=== PATIENT | female | born 1970 | race African-American/Black ===

== ENCOUNTER 2021-11-23 19:02 | Emergency (ER) | payer OTHER, SELFPAY ==
[2021-11-23 19:25] VITALS: BP 216/135; PULSE 83; RESP 16; TEMP 36.4; O2SAT 100
--- NOTE | 2021-11-23 19:30 | ED.EYEPROB ---
HPI - Eye Problem General Chief complaint: Eye Problems Stated complaint: Left Eye Pain Time Seen by Provider: 11/23/21 19:30 Source: patient and RN notes reviewed Mode of arrival: ambulatory Limitations: no limitations History of Present Illness HPI Narrative: 51-year-old female presents to the [facility] with eye redness, left. Reports she had blurry vision this morning, none currently. Wears glasses. Does not wear contacts. No trauma to the eye. Woke up this morning and the eye was crusted closed. Has a history of high blood pressure, states that she takes her blood pressure medication at night. chief complaint: eye pain and eye redness Related Data Home Medications Medication Instructions Recorded Confirmed carvedilol 12.5 mg tablet 12.5 mg PO DAILY 11/23/21 11/23/21 metformin 1,000 mg tablet 1,000 mg PO DIRECTED 11/23/21 11/23/21 olmesartan 40 mg tablet 40 mg PO DAILY 11/23/21 11/23/21 rosuvastatin 20 mg tablet 20 mg PO DAILY 11/23/21 11/23/21 spironolactone 25 1 tablet PO DAILY 11/23/21 11/23/21 mg-hydrochlorothiazide 25 mg tablet Allergies Allergy/AdvReac Type Severity Reaction Status Date / Time shellfish derived Allergy Unknown Other Verified 11/23/21 19:10 Review of Systems Review of Systems: All systems reviewed & are unremarkable except as noted in HPI and below Constitutional: Constitutional: Reports no additional constitutional complaints, Denies chills and Denies fever(s) Eyes: Eyes: Reports as per HPI, Denies change in vision and Reports photophobia ENT: Reports system reviewed and no additional complaints, except as documented Cardiovascular: Cardiovascular: Reports no additional cardiovascular complaints Respiratory: Respiratory: Reports no additional respiratory complaints Gastrointestinal: Gastrointestinal: Reports no additional gastrointestinal complaints Musculoskeletal: Musculoskeletal: Reports no additional musculoskeletal complaints Integumentary/Breasts: Skin/Breast: Reports system reviewed and no additional complaints, except as docu Neurologic: Reports system reviewed and no additional complaints, except as documented Psychiatric: Psychiatric: Reports no additional psychiatric complaints Allergic/Immunologic: Allergic/Immunologic: Reports no additional allergic/immunologic complaints PMFSH Comments At the time of my signature, I reviewed and agree with the nursing past medical, surgical, social, and family history. There is no relevant family history pertinent to the patient complaint. Exam Const: General: healthy appearing, no acute distress and alert Nutritional Appearance: well nourished Orientation/consciousness: patient oriented x3 Limitations: no limitations HENMT: Head: normal to inspection Ears: external ears normal General nose exam: Normal external nose present Eyes: General: appearance normal, both eyes and all related structures Conjunctivae: conjunctival abnormality left conjunctival injection (lower lid) and discharge (clear) Pupils: Equal, round and reactive pupils present EOM: EOMs intact bilaterally Direct Ophthalmoscopy: no photophobia Other: Denies trauma Neck: Neck: normal visual inspection, no lymphadenopathy and no meningeal signs Chest: Chest palpation & inspection: normal inspection of the chest Resp: Effort & Inspection: normal respiratory effort and no use of accessory muscles Auscultation: clear to auscultation bilaterally, no crackles, no rales, no rhonchi and no wheezes Cardio: Rate: regular rate Rhythm: regular rhythm Back/Spine/Pelvis: Cervical Spine: normal cervical lordosis Thoracic/Lumbar Spine: thoracic and lumbar spine normal to inspection Skin: General skin exam: normal color Rashes: no rashes Wounds: no wounds Neuro: General: patient oriented x3, moves all extremities, no meningeal signs and no focal motor deficits Cranial nerves: Yes Equal, round and reactive pupils present Speech: normal speech Gait exam (
[2021-11-23 19:43] VITALS: BP 212/110
== END 2021-11-23 19:44 | disposition left against medical advice (07) ==
PROVIDERS: Emergency Provider Nurse Practitioner; PCP Internal Medicine
DX: H10.32 Unspecified acute conjunctivitis, left eye (principal); I10 Essential (primary) hypertension; E78.00 Pure hypercholesterolemia, unspecified; E11.9 Type 2 diabetes mellitus without complications
CPT/HCPCS: 99213; G0463

== ENCOUNTER 2022-01-19 19:10 | Emergency (ER) | payer OTHER, SELFPAY ==
--- NOTE | 2022-01-19 19:13 | ED.URI ---
HPI - URI/Sore Throat General Chief Complaint: Upper Respiratory Infection Stated Complaint: COUGH Time Seen by Provider: 01/19/22 19:21 Source: patient, RN notes reviewed and old records reviewed Mode of arrival: ambulatory Limitations: no limitations History of Present Illness HPI Narrative: 51-year-old female presents to the [facility] with complaints of cough, congestion since , 5 days. Patient states that she has been taking [id number] products. Unsure of fevers. Denies any chest pain or shortness of breath. Patient reports loss of taste and smell since . Had tried taking Coricidin HBP with no relief Related Data Home Medications Medication Instructions Recorded Confirmed carvedilol 12.5 mg tablet 12.5 mg PO DAILY 11/23/21 01/19/22 metformin 1,000 mg tablet 1,000 mg PO DIRECTED 11/23/21 01/19/22 olmesartan 40 mg tablet 40 mg PO DAILY 11/23/21 01/19/22 rosuvastatin 20 mg tablet 20 mg PO DAILY 11/23/21 01/19/22 spironolactone 25 1 tablet PO DAILY 11/23/21 01/19/22 mg-hydrochlorothiazide 25 mg tablet Allergies Allergy/AdvReac Type Severity Reaction Status Date / Time shellfish derived Allergy Unknown Other Verified 01/19/22 19:17 Review of Systems Review of Systems: All systems reviewed & are unremarkable except as noted in HPI and below Constitutional: Constitutional: Reports no additional constitutional complaints, Denies chills and Denies fever(s) Eyes: Eyes: Reports no additional eye complaints ENT: Reports as per HPI and Reports nasal congestion Cardiovascular: Cardiovascular: Reports no additional cardiovascular complaints Respiratory: Respiratory: Reports as per HPI, Denies chest congestion, Reports cough, Denies dyspnea and Denies wheezing Gastrointestinal: Gastrointestinal: Reports no additional gastrointestinal complaints Musculoskeletal: Musculoskeletal: Reports no additional musculoskeletal complaints Integumentary/Breasts: Skin/Breast: Reports system reviewed and no additional complaints, except as docu Neurologic: Reports system reviewed and no additional complaints, except as documented Psychiatric: Psychiatric: Reports no additional psychiatric complaints Allergic/Immunologic: Allergic/Immunologic: Reports no additional allergic/immunologic complaints PMFSH Past Medical History Medical History (Updated 01/19/22 @ 19:48 by Jammie Solis, CARMELO) Diabetes High cholesterol History of high blood pressure Comments At the time of my signature, I reviewed and agree with the nursing past medical, surgical, social, and family history. There is no relevant family history pertinent to the patient complaint. Exam Const: General: healthy appearing, comfortable, no acute distress, well developed, alert and well nourished Nutritional Appearance: well nourished Orientation/consciousness: patient oriented x3 Limitations: no limitations HENMT: Head: normal to inspection Ears: external ears normal and TM's normal bilaterally Face/Nose/Sinus: Normal external nose present and Nasal discharge present clear bilateral Face and sinus: normal facial exam and sinus tenderness frontal and maxillary Mouth: Yes Normal oral and palatal mucosa present, Yes lip normal and Yes moist mucous membranes Throat: posterior oropharynx normal and uvula midline Eyes: General: appearance normal, both eyes and all related structures Conjunctivae: conjunctivae normal Pupils: Equal, round and reactive pupils present Neck: Neck: normal visual inspection, full ROM, no lymphadenopathy and no meningeal signs Chest: Chest palpation & inspection: normal inspection of the chest Resp: Effort & Inspection: normal respiratory effort and no use of accessory muscles Auscultation: clear to auscultation bilaterally, no crackles, no rales, no rhonchi and no wheezes Cardio: Rate: regular rate Rhythm: regular rhythm Back/Spine/Pelvis: Cervical Spine: cervical ROM normal and No Cervical spine tenderness T
[2022-01-19 19:16] VITALS: BP 162/106; PULSE 98; RESP 18; TEMP 36.2; O2SAT 99
== END 2022-01-19 19:45 | disposition home or self-care (01) ==
PROVIDERS: Emergency Provider Nurse Practitioner; PCP Internal Medicine
DX: J01.40 Acute pansinusitis, unspecified (principal); E11.9 Type 2 diabetes mellitus without complications; Z79.84 Long term (current) use of oral hypoglycemic drugs; Z20.822 Contact with and (suspected) exposure to COVID-19
CPT/HCPCS: 87426; 87804; 99213; C9803; G0463

== ENCOUNTER 2023-11-21 17:49 | Emergency (ER) | payer OTHER, SELFPAY ==
--- NOTE | 2023-11-21 17:50 | ED.UPPEXIN ---
HPI - Extremity Injury (Upper) General Chief Complaint: Extremity Problem,Nontraumatic Stated Complaint: left shoulder issue Time Seen by Provider: 11/21/23 17:50 Source: patient Mode of arrival: ambulatory Limitations: no limitations History of Present Illness HPI narrative: Herlinda is a 53-year-old female patient presenting to the clinic today with complaints of left anterior shoulder pain x2 days. She reports is having pain radiating from the shoulder down into the elbow. Pain is worse with trying to lift the left shoulder. No known injury. 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 Denies any heavy lifting Related Data Home Medications Medication Instructions Recorded Confirmed carvedilol 12.5 mg tablet 12.5 mg PO DAILY 11/23/21 01/19/22 metformin 1,000 mg tablet 1,000 mg PO DIRECTED 11/23/21 01/19/22 olmesartan 40 mg tablet 40 mg PO DAILY 11/23/21 01/19/22 rosuvastatin 20 mg tablet 20 mg PO DAILY 11/23/21 01/19/22 spironolactone 25 1 tablet PO DAILY 11/23/21 01/19/22 mg-hydrochlorothiazide 25 mg tablet estradiol 0.01% (0.1 mg/gram) vaginal 11/21/23 vaginal cream Allergies Allergy/AdvReac Type Severity Reaction Status Date / Time shellfish derived Allergy Unknown Other Verified 11/21/23 17:52 Review of Systems Review of Systems: Pertinent positives per HPI. Patient denies any fever, chills, rash, headache, visual changes, dizziness, cough, runny nose, sore throat, shortness of breath, chest pain, palpitations, nausea, vomiting, diarrhea, constipation, abdominal pain, or any urinary issues. PMFSH Past Medical History Medical History Diabetes High cholesterol History of high blood pressure Comments At the time of my signature, I reviewed and agree with the nursing past medical, surgical, social, and family history. There is no relevant family history pertinent to the patient complaint. Exam Narrative: General: Well-developed, well nourished, in no apparent distress Head: Normocephalic, atraumatic. Cardio: Regular rate and rhythm, s1 and s2 normal, no murmur appreciated. Resp: Clear to auscultation bilaterally, no rhonchi, rales, wheezing or rubs. Musculoskeletal: No deformity, tender to palpation over the anterior lateral shoulder, unable to raise arm above head, pain radiating from the anterior shoulder into the elbow, hand grasp strong and equal bilaterally, positive cross-arm test and Verduzco test, unable to perform empty can and full can due to significant pain. Peripheral pulse strong, no edema, no cyanosis, normal gait and station Course Course Emergency Course: Portions of this record may have been created with voice recognition software. Level of Care: Express Care Visit Vital Signs Vital signs: Vital signs reviewed MDM - Extremity Injury (Upper) MDM Narrative Medical decision making narrative: At the time of visit patient is resting comfortably on the exam table. Patient appears to be nontoxic. Plan: Offered arm sling and patient declined at this time. I suspect patient has rotator cuff tendinitis. Prescription for Medrol Dosepak was sent to the pharmacy. Patient has a follow-up appointment with her provider on . Recommend further evaluation if she is still having symptoms at that time. Blood pressure was elevated in the clinic today and patient has not yet taken her blood pressure medicines today. Supportive measures were discussed with the patient and they voiced understanding discharge instructions and agrees to treatment plan. Return precautions reviewed Differential Diagnosis Differential diagnosis: Likely dislocation of shoulder, fracture of humerus, fracture of clavicle and other (Shoulder sprain, osteoarthritis, AC separation,) Discharge Plan Discharge Clinical Impression: Tendonitis of shoulder, left Patient Disposition: Home, Self-Care Condition: Stable Instruction
[2023-11-21 17:52] VITALS: BP 187/100; PULSE 92; RESP 20; TEMP 36.7; O2SAT 98
== END 2023-11-21 18:15 | disposition home or self-care (01) ==
PROVIDERS: Emergency Provider Nurse Practitioner Family; PCP Internal Medicine
DX: M77.8 Other enthesopathies, not elsewhere classified (principal); E11.9 Type 2 diabetes mellitus without complications; Z79.84 Long term (current) use of oral hypoglycemic drugs; E78.00 Pure hypercholesterolemia, unspecified; I10 Essential (primary) hypertension
CPT/HCPCS: 99213; G0463

== ENCOUNTER 2024-08-17 09:26 | Emergency (ER) | payer OTHER, SELFPAY ==
--- NOTE | 2024-08-17 09:28 | ED_ITS ---
HPI - URI/Sore Throat General Chief Complaint: Upper Respiratory Infection Stated Complaint: sore throat/coughing Time Seen by Provider: 08/17/24 09:32 Source: patient, RN notes reviewed and old records reviewed Mode of arrival: ambulatory Limitations: no limitations History of Present Illness HPI Narrative: 54-year-old female presents to the [facility] with complaints of cough, sore throat for 1 week. Has taken OTC cold medications. Some parts of this dictation were generated by voice recognition software and may contain typographical and/or grammatical inaccuracies. Related Data Home Medications ?Medication ?Instructions ?Recorded ?Confirmed ?Last Taken ?Type carvedilol 12.5 mg tablet 12.5 mg PO DAILY 11/23/21 01/19/22 Unknown History metformin 1,000 mg tablet 1,000 mg PO DIRECTED 11/23/21 01/19/22 Unknown History olmesartan 40 mg tablet 40 mg PO DAILY 11/23/21 01/19/22 Unknown History rosuvastatin 20 mg tablet 20 mg PO DAILY 11/23/21 01/19/22 Unknown History spironolactone 25 1 tablet PO DAILY 11/23/21 01/19/22 Unknown History mg-hydrochlorothiazide 25 mg tablet estradiol 0.01% (0.1 mg/gram) vaginal 11/21/23 Unknown History vaginal cream Allergies Allergy/AdvReac Type Severity Reaction Status Date / Time shellfish derived Allergy Unknown Other Verified 08/17/24 09:29 Review of Systems Review of Systems: All systems reviewed & are unremarkable except as noted in HPI and below Constitutional: Constitutional: Reports no additional constitutional complaints ENT: Reports as per HPI and Reports sore throat Cardiovascular: Cardiovascular: Reports no additional cardiovascular complaints, Denies chest pain and Denies dyspnea Respiratory: Respiratory: Reports as per HPI, Denies chest congestion, Reports cough and Denies dyspnea Musculoskeletal: Musculoskeletal: Reports no additional musculoskeletal complaints Integumentary/Breasts: Skin/Breast: Reports system reviewed and no additional complaints, except as docu PMFSH Past Medical History Medical History High cholesterol Diabetes History of high blood pressure Comments At the time of my signature, I reviewed and agree with the nursing past medical, surgical, social, and family history. There is no relevant family history pertinent to the patient complaint. Exam Const: General: cooperative, comfortable, no acute distress, well developed, alert, tired appearing, uncomfortable and well nourished Nutritional Appearance: well nourished Orientation/consciousness: patient oriented x3 Limitations: no limitations HENMT: Head: normal to inspection Ears: hearing grossly normal bilaterally, external ears normal, TM's normal bilaterally, EAC's normal, mastoids normal and no periauricular adenopathy Face/Nose/Sinus: Abnormal mucous membranes and turbinates present boggy and erythematous, face symmetric and sinus tenderness Face and sinus: normal facial exam and face symmetric Mouth: Yes Normal oral and palatal mucosa present, Yes lip normal, Yes tongue normal and Yes moist mucous membranes Throat: posterior oropharynx normal, uvula midline, postnasal drainage and no uvular edema Eyes: General: appearance normal, both eyes and all related structures Alignment and Position: alignment normal Conjunctivae: conjunctival abnormality right conjunctival injection and discharge Neck: Neck: normal visual inspection, full ROM, no lymphadenopathy and no meningeal signs Chest: Chest palpation & inspection: normal inspection of the chest Resp: Effort & Inspection: normal respiratory effort and able to speak in complete sentences Auscultation: clear to auscultation bilaterally, no crackles, no rales, no rhonchi and no wheezes Cardio: Rate: regular rate Skin: General skin exam: normal color and no rashes or lesions noted Neuro: General: patient oriented x3, gait normal, moves all extremities and no meningeal signs Cognition (Neuro): normal cognition Speech: normal speech Gait exam (Neuro): Normal gait present Extrem: General: normal to inspection, full ROM, capillary refill normal and normal gait Psych: Appearance: grossly normal and well kempt Mental Status: mental status grossly normal Speech and movement: Normal speech and movement present and Clear speech present Affect: normal affect Attitude: cooperative Course Course Level of Care: Express Care Visit Vital Signs Vital signs: Vital Signs Temperature 97.0 F L 08/17/24 09:35 Pulse Rate 106 H 08/17/24 09:35 Respiratory Rate 16 08/17/24 09:35 Blood Pressure 157/108 H 08/17/24 09:35 Pulse Oximetry 98 08/17/24 09:35 Oxygen Delivery Room Air 08/17/24 09:35 Temperature 97.0 F L 08/17/24 09:35 Pulse Rate 106 H 08/17/24 09:35 Respiratory Rate 16 08/17/24 09:35 Blood Pressure 157/108 H 08/17/24 09:35 Pulse Oximetry 98 08/17/24 09:35 Oxygen Delivery Room Air 08/17/24 09:35 Reviewed MDM - URI/Sore Throat MDM Narrative Medical decision making narrative: Patient sitting comfortably in exam room. Patient is nontoxic. Blood pressure is elevated, has been taking cold medicine the last several days. Has a history of hypertension and takes medications daily Patient 10 day history of sore throat, cough, sinus congestion. Right eye redness. Patient appropriate for outpatient treatment of sinusitis, conjunctivitis. Discharge instructions reviewed with patient, as well as provided in writing per nursing staff. The instructions also include specific and strict return/GO TO THE ER as well as f/u information. All questions have been answered, and the patient deny any further questions with discharge and discharge plan. Some parts of this dictation were generated by voice recognition software and may contain typographical and/or grammatical inaccuracies. Differential Diagnosis Differential diagnosis: Likely upper respiratory infection, otitis media, sinusitis, viral infection, bronchitis, influenza and pharyngitis Critical Care Time Critical Care Time Critical Care Time: No Discharge Plan Discharge Clinical Impression: Sinusitis, Bronchitis, Conjunctivitis Patient Disposition: Home Condition: Stable Instructions: Antibiotic Form, Sinusitis (ED), Acute Bronchitis (ED), Conjunctivitis (ED) Additional Instructions: Today your blood pressure was 157/108. Please follow-up with your primary care provider It is very important to treat your symptoms. Drink plenty of water, Gatorade, Pedialyte, ice pops or Jell-O. -Alternate Tylenol and Motrin per package directions for fever or pain. You can alternate every 4 hours -Antihistamine medication such as Zyrtec/Claritin/Kristen during the day can help improve symptoms. -doing daily nasal irrigations can help relieve pressure your sinuses. Things like a Neti pot -Use Flonase twice a day for 5 days then daily to help reduce the inflammation and dry up your sinuses. -You can also use Coricidin HBP. Be sure to drink plenty of water with this medication at least 8 ounces with every dose and it is important to drink 8 to 10 glasses of water per day. Water is a natural decongestant Please be careful when you take cold medication. Please make sure that it is safe with people with hypertension or high blood pressure. -Frequent hand washing or hand loader is one of the best ways to prevent spread of infection. -Using a vaporizer or humidifier at night will also help thin secretions and help with coughing up phlegm. -Follow up with primary care provider in 7-10 days if condition is not improving - For new or worsening symptoms go directly to the nearest ER Patient Language: Greek Prescriptions: New ofloxacin 0.3 % drops See Rx Instructions EACH EYE .COMPLEX Qty: 5 0RF Rx Instructions: put 1-2 drps into affected eye(s) every 2-4 h x 2 days, then 1-2 drps 4 times/day days 3-7 methylprednisolone [Medrol (Sylvain)] 4 mg tablets,dose pack See Rx Instructions PO .COMPLEX Qty: 21 0RF Rx Instructions: orally per package directions amoxicillin-pot clavulanate 875-125 mg tablet 1 tablet PO Q12H Qty: 14 0RF No Action carvedilol 12.5 mg tablet 12.5 mg PO DAILY spironolacton-hydrochlorothiaz 25-25 mg tablet 1 tablet PO DAILY metformin 1,000 mg tablet 1,000 mg PO DIRECTED olmesartan 40 mg tablet 40 mg PO DAILY rosuvastatin 20 mg tablet 20 mg PO DAILY estradiol 0.01 % (0.1 mg/gram) cream VAGINAL fluticasone propionate [Flonase Allergy Relief] 50 mcg/actuation spray,suspension 2 spray intranasal DAILY Qty: 16 0RF Rx Instructions: administer into each nostril Follow-up/Referrals: Emanuel,MD Mackay ([place]) [Primary Care Provider] - 1 Week ([facility] care follow up blood pressure check) Stand Alone Forms: Work/School Release IP Time of Disposition: 09:53
[2024-08-17 09:35] VITALS: BP 157/108; PULSE 106; RESP 16; TEMP 36.1; O2SAT 98
== END 2024-08-17 10:00 | disposition home or self-care (01) ==
PROVIDERS: Emergency Provider Nurse Practitioner; PCP Internal Medicine
DX: J32.9 Chronic sinusitis, unspecified (principal); J40 Bronchitis, not specified as acute or chronic; H10.9 Unspecified conjunctivitis; E78.00 Pure hypercholesterolemia, unspecified; E11.9 Type 2 diabetes mellitus without complications; Z79.84 Long term (current) use of oral hypoglycemic drugs; I10 Essential (primary) hypertension
CPT/HCPCS: 99213; G0463

== ENCOUNTER 2024-12-08 09:20 | Emergency (ER) | payer OTHER, SELFPAY ==
[2024-12-08 09:28] VITALS: BP 153/101; PULSE 77; RESP 16; TEMP 36.1; O2SAT 99
--- NOTE | 2024-12-08 09:46 | ED.URI ---
HPI - URI/Sore Throat General Chief Complaint: Upper Respiratory Infection Stated Complaint: Cough/Fever Patient presents to the [facility] with complaints of nasal congestion, sinus pain, headache, fatigue fever, productive cough, and pressure in both ears that began about 10 days ago. Patient reports doing several mylr-[id number]-[id number] cough cold medications without relief of symptoms. Patient reports feeling worse this morning was unable to sleep last night due to symptoms. No known sick contacts. Denies fever, chills, body aches, dizziness, difficulty swallowing, shortness of breath, nausea vomiting, diarrhea. Related Data Home Medications ?Medication ?Instructions ?Recorded ?Confirmed ?Last Taken ?Type carvedilol 12.5 mg tablet 12.5 mg PO DAILY 11/23/21 01/19/22 Unknown History metformin 1,000 mg tablet 1,000 mg PO DIRECTED 11/23/21 01/19/22 Unknown History olmesartan 40 mg tablet 40 mg PO DAILY 11/23/21 01/19/22 Unknown History rosuvastatin 20 mg tablet 20 mg PO DAILY 11/23/21 01/19/22 Unknown History spironolactone 25 1 tablet PO DAILY 11/23/21 01/19/22 Unknown History mg-hydrochlorothiazide 25 mg tablet estradiol 0.01% (0.1 mg/gram) vaginal 11/21/23 Unknown History vaginal cream Allergies Allergy/AdvReac Type Severity Reaction Status Date / Time shellfish derived Allergy Unknown Other Verified 12/08/24 09:29 Review of Systems Constitutional: Constitutional: Reports as per HPI, Denies chills, Reports fatigue, Denies fever(s) and Denies weakness Eyes: Eyes: Reports no additional eye complaints ENT: Reports as per HPI, Denies vertigo, Denies dizziness, Reports nasal congestion and Reports sore throat Comments: sinus pain Cardiovascular: Cardiovascular: Reports as per HPI, Denies chest pain, Denies rapid heart rate, Denies radiating jaw, neck or arm pain and Denies slow heart rate Respiratory: Respiratory: Reports as per HPI, Reports chest congestion, Reports cough, Denies dyspnea and Denies wheezing Gastrointestinal: Gastrointestinal: Reports no additional gastrointestinal complaints Genitourinary: Genitourinary: Reports no additional female genitourinary complaints Musculoskeletal: Musculoskeletal: Reports as per HPI, Denies arthralgias, Denies joint swelling and Denies muscle cramps Integumentary/Breasts: Skin/Breast: Reports as per HPI, Denies pruritus, Denies erythema, Denies rash and Denies skin ulcer Neurologic: Reports as per HPI, Denies vertigo, Denies dizziness, Reports headache(s) and Denies weakness Psychiatric: Psychiatric: Reports no additional psychiatric complaints Endocrine: Endocrine: Reports no additional endocrine complaints Hematologic/Lymphatic: Hematologic/Lymphatic: Reports no additional hematologic/lymphatic complaints Allergic/Immunologic: Allergic/Immunologic: Reports as per HPI and Denies wheezing PMFSH Past Medical History Medical History High cholesterol Diabetes History of high blood pressure Exam Const: General: healthy appearing and no acute distress Nutritional Appearance: well nourished Orientation/consciousness: patient oriented x3 Limitations: no limitations HENMT: Head: normal to inspection Ears: external ears normal and TM's abnormal bilaterally ( Dullness bilaterally) Face/Nose/Sinus: Normal external nose present and nares abnormal ( bilateral erythema and edema noted) Face and sinus: normal facial exam and sinus tenderness frontal Mouth: Yes Normal oral and palatal mucosa present Throat: posterior oropharynx abnormal ( mild erythema, no edema or exudate) Neck: Neck: normal visual inspection and no lymphadenopathy Resp: Effort & Inspection: normal respiratory effort Auscultation: diminished lung sounds Other: dry cough noted Cardio: Rate: regular rate Rhythm: regular rhythm Skin: General skin exam: normal color Rashes: no rashes Wounds: no wounds Neuro: General: patient oriented x3 Speech: normal speech Gait exam (Neuro): Normal gait present Psych: Mental Status: mental status grossly normal Affect: normal affect Attitude: cooperative Course Course Level of Care: Express Care Visit Vital Signs Vital signs: Vital Signs Temperature 97.0 F L 12/08/24 09:28 Pulse Rate 77 12/08/24 09:28 Respiratory Rate 16 12/08/24 09:28 Blood Pressure 153/101 H 12/08/24 09:28 Pulse Oximetry 99 12/08/24 09:28 Oxygen Delivery Room Air 12/08/24 09:28 Temperature 97.0 F L 12/08/24 09:28 Pulse Rate 77 12/08/24 09:28 Respiratory Rate 16 12/08/24 09:28 Blood Pressure 153/101 H 12/08/24 09:28 Pulse Oximetry 99 12/08/24 09:28 Oxygen Delivery Room Air 12/08/24 09:28 MDM - URI/Sore Throat MDM Narrative Medical decision making narrative: Ten days of symptoms with worsening. Will treat for sinusitis. Elevated blood pressure noted patient has been using [id number] decongestants. Educated patient on this medication. The [facility] History is obtained from patient who is an independent historian and physical exam was performed. Available medical records were reviewed at this time. Exam findings show no acute concerns or changes; patient is non-toxic appearing and is in no distress. Patient is appropriate for outpatient treatment and follow-up. I have evaluated and discussed social determinants of health with the patient that could potentially impact subsequent diagnosis and treatment plans. Differential diagnosis and treatment plan were discussed with the patient. Patient agrees with discussion and after shared medical decision making agrees with plan of care. All questions were answered to the patient's satisfaction. Differential Diagnosis Differential diagnosis: Likely upper respiratory infection, otitis media, sinusitis, viral infection, influenza and pharyngitis Medical Records Attestation: I reviewed the patient's medical records. Discharge Plan Discharge Clinical Impression: Sinusitis Patient Disposition: Home Condition: Stable Instructions: Antibiotic Form, Rhinosinusitis (ED) Additional Instructions: Take the antibiotics as directed for the entire course. Do not miss any doses. What you are taking antibiotics and is recommended to take a probiotic or have yogurt daily to return the good gut bacteria to your system. This can also help with acute diarrhea while taking antibiotics. A can take 24-48 hours for the antibiotics the cake in to relieve your symptoms continue to take these medications to help with various symptoms: Tylenol or Motrin for pain, headache, or fever Flonase/fluticasone or Nasacort/triamcinolone nasal spray- helps with congestion and nasal drainage. Sudafed/pseudoephedrine helps with sinus pain and congestion. Caution with high blood pressure. Use a humidifier or vaporizer at night. Drink plenty of water. 8-10 glasses per day. Mucinex/[place]ifenes[place] directed and be sure to take with 8oz of water. Warm compresses over the forehead and cheeks to promote sinus drainage. Return to urgent care or go to the ER for new or worsening symptoms. Follow up with Primary provider if not improved after 1 week. Patient Language: Guyanese Prescriptions: New amoxicillin-pot clavulanate 875-125 mg tablet 1 tablet PO Q12H Qty: 20 0RF No Action carvedilol 12.5 mg tablet 12.5 mg PO DAILY spironolacton-hydrochlorothiaz 25-25 mg tablet 1 tablet PO DAILY metformin 1,000 mg tablet 1,000 mg PO DIRECTED olmesartan 40 mg tablet 40 mg PO DAILY rosuvastatin 20 mg tablet 20 mg PO DAILY estradiol 0.01 % (0.1 mg/gram) cream VAGINAL fluticasone propionate [Flonase Allergy Relief] 50 mcg/actuation spray,suspension 2 spray intranasal DAILY Qty: 16 0RF Rx Instructions: administer into each nostril Follow-up/Referrals: Emanuel,MD Mackay ([place]) [Primary Care Provider] Time of Disposition: 09:48
== END 2024-12-08 09:52 | disposition home or self-care (01) ==
PROVIDERS: Emergency Provider Nurse Practitioner Family; PCP Internal Medicine
DX: J32.9 Chronic sinusitis, unspecified (principal); E11.9 Type 2 diabetes mellitus without complications; Z79.84 Long term (current) use of oral hypoglycemic drugs; I10 Essential (primary) hypertension; E78.00 Pure hypercholesterolemia, unspecified
CPT/HCPCS: 99213; G0463